=== PATIENT | female | born 1975 | race Caucasian/White ===

== ENCOUNTER 2022-07-22 11:22 | Emergency (ER) | payer OTHER ==
[~2022-07-22] VITALS: Ht 172.7 cm; Wt 97.5 kg
[2022-07-22] MEDS ORDERED: METR500 PO (11:41)
[2022-07-22] MEDS ORDERED: ONDA4ODT MM ×2 (11:42→13:57)
[2022-07-22] MEDS ORDERED: CLAR500 PO (11:42)
[2022-07-22] MEDS ORDERED: METO10 PO (13:57)
== END 2022-07-22 14:09 | disposition home or self-care (01) ==
LOC: ER 11:22
DX: R11.2 Nausea with vomiting, unspecified (principal); T37.8X5A Adverse effect of other specified systemic anti-infectives and antiparasitics, initial encounter; Z88.0 Allergy status to penicillin; Z79.899 Other long term (current) drug therapy
CPT/HCPCS: A9270; J1100

== ENCOUNTER → 2022-12-13 | Outpatient (CLI) | payer OTHER ==
[~2022-12-13] MED LIST: CLAR500 PO; METO10 PO; METR500 PO; ONDA4ODT MM
[2022-12-17 09:13] LABS: HPV 16 Negative (Negative); HPV 18 Negative (Negative); HPV OTHER HR TYPES Negative (Negative)
== END ==
LOC: LAB SHORT 16:32 → LAB 16:32
PROVIDERS: Obstetrics & Gynecology
DX: Z01.419 Encounter for gynecological examination (general) (routine) without abnormal findings (principal)
CPT/HCPCS: 87624; G0145

== ENCOUNTER → 2022-12-24 | Outpatient (CLI) | payer OTHER ==
[2022-12-27 15:09] LABS: HPV 16 Negative (Negative); HPV 18 Negative (Negative); HPV OTHER HR TYPES Negative (Negative)
== END ==
LOC: LAB 08:52 → LAB SHORT 08:52
PROVIDERS: Obstetrics & Gynecology
DX: R87.615 Unsatisfactory cytologic smear of cervix (principal)
CPT/HCPCS: 87624; G0145